=== PATIENT | female | born 1945 | race Caucasian/White ===

== ENCOUNTER 2016-08-04 07:59 | Emergency (ER) | payer OTHER ==
--- NOTE | 2016-08-04 09:30 | RAD ---
HISTORY: Tender trochanter, status post fall COMPARISONS: None VIEWS: 3, Frontal view of the pelvis with frontal and frog-leg views of the left hip FINDINGS: BONE DENSITY: Normal. BONES: There is a mildly angulated slightly impacted fracture of the subcapital femoral neck on the left. JOINTS: There is no arthropathy. ALIGNMENT: There is no dislocation. SOFT TISSUES: Unremarkable. OTHER FINDINGS: None. IMPRESSION: MILDLY ANGULATED LEFT FEMORAL NECK FRACTURE
[2016-08-04] MEDS ORDERED: HYDROcodone/ACETAMIN 5-325 MG* 1 TAB PO ONE (09:38)
[2016-08-04 10:20] VITALS: BP 151/85
--- NOTE | 2016-08-04 10:48 | UC ---
Austin Dean Anna, scribed for Yael Looney DO on 08/04/16 at 0939 . Hip/Pelvis Pain - HPI Summary HPI Summary: Patient is a 70 y/o female coming to [facility] presenting with the sudden onset of constant left hip pain that began at 2230 last night. Per triage notes, the severity of the pain is described as 5/10. At rest, the pain is lower, of severity 3/10. The patient was walking when she tripped on shopping bags and fell from a standing height, landing on her left hip. The pain is exacerbated by walking and movement. When walking, she experiences dizziness and nausea. She denies abdominal pain, fever, cough, or other symptoms. Patient medications were reviewed this visit. 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 Negative: Swelling, Redness, Bruising, Fever, Abdominal Pain - Allergies/Home Medications Allergies/Adverse Reactions: Allergies Allergy/AdvReac Type Severity Reaction Status Date / Time No Known Allergies Allergy Verified 09/03/12 17:53 PMH/Surg Hx/FS Hx/Imm Hx Previously Healthy: Yes Endocrine History Of: Denies: Diabetes, Thyroid Disease Cardiovascular History Of: Denies: Cardiac Disorders, Hypertension Respiratory History Of: Denies: COPD, Asthma GI/ History Of: Denies: Ulcer - Surgical History Surgical History: None - Family History Known Family History: Positive: Hypertension - In parents >age 90 Negative: Diabetes Family History: Denies family history of osteoperosis - Social History Occupation: Employed Full-time Lives: With Family Alcohol Use: Daily Alcohol Amount: wine with dinner Substance Use Type: None Smoking Status (MU): Never Smoked Tobacco Review of Systems Constitutional: Negative Skin: Negative Eyes: Negative ENT: Negative Respiratory: Negative Cardiovascular: Negative Gastrointestinal: Other - nausea with attempting to bear wt Genitourinary: Negative Motor: Negative Neurovascular: Negative Musculoskeletal: Arthralgia - Pain in left hip, over trochanter, radiating down to knee Neurological: Other - dizziness with attempting to bear wt Psychological: Negative All Other Systems Reviewed And Are Negative: Yes Physical Exam Triage Information Reviewed: Yes Appearance: Well-Appearing, No Pain Distress, Well-Nourished Vital Signs: Initial Vital Signs Temp 97.8 F 08/04/16 08:09 Pulse 74 08/04/16 08:09 Resp 18 08/04/16 08:09 BP 154/89 08/04/16 08:09 Pulse Ox 100 08/04/16 08:09 Vital Signs Reviewed: Yes Eyes: Positive: Conjunctiva Clear. Negative: Discharge ENT: Positive: Hearing grossly normal. Negative: Muffled/hoarse voice Neck exam: Normal Neck: Positive: Supple Respiratory: Positive: Lungs clear, Normal breath sounds, No respiratory distress, No accessory muscle use Cardiovascular: Positive: RRR, No Murmur Musculoskeletal Exam: Other - Ankle, knee, right and left hip, and sacrum were evaluated. Tenderness to palpation was elicited only over trochanter. Musculoskeletal: Positive: Other: - no swelling redness, bruising Neurological: Positive: Alert, Muscle Tone Normal Psychological Exam: Normal Psychological: Positive: Age Appropriate Behavior Skin Exam: Normal Diagnostics - Radiology Hip/Pelvis XR Xray Interpretation: Positive (See Comments) Radiology Interpretation Completed By: Radiologist - IMPRESSION: MILDLY ANGULATED LEFT FEMORAL NECK FRACTURE Hip Injury Course/Dx - Course Course Of Treatment: Declines analgesics at this time. - Differential Dx/Diagnosis Differential Diagnosis/HQI/PQRI: Bursitis, Contusion, Fracture, Sprain, Strain Provider Diagnoses: Mildly angulated left femoral neck fracture - Physician Notification/Consults Discussed Patient Care With: Dr. Peterson (orthopedics) at 0940. He recommends that the patient go to the emergency room to be evaluated by an orthopedic surgeon. Dr. Anthony (ED provider) at 1005. Agrees to accept patient at [facility]. Discharge - Discharge Plan Condition: Stable Disposition: TRANS HIGHER LVL OF CARE FAC Discharge Disposition Comment: [facility] Referrals: Kimberly Hubbard MD [Primary Care Provider] - The documentation as recorded by the Austin morris Anna accurately reflects the service I personally performed and the decisions made by , Yael Looney DO.
== END 2016-08-04 10:22 | disposition short-term general hospital (02) ==
LOC: UCEAST 07:59
DX: S72.002A Fracture of unspecified part of neck of left femur, initial encounter for closed fracture (principal); W01.0XXA Fall on same level from slipping, tripping and stumbling without subsequent striking against object, initial encounter; Y93.9 Activity, unspecified; Y92.9 Unspecified place or not applicable; R42 Dizziness and giddiness
CPT/HCPCS: 99213; G0463

== ENCOUNTER 2016-08-04 10:44 | Inpatient (IN) | payer OTHER ==
[2016-08-04] MEDS ORDERED: NS 0.9% 1000 ML* 1,000 ML IV ONE (10:52)
--- NOTE | 2016-08-04 11:28 | RAD ---
HISTORY: Left hip fracture, fall COMPARISONS: Left hip dated July 27, 2016 VIEWS: 5, Frontal and lateral views of the left femur FINDINGS: BONE DENSITY: Normal. BONES: Again noted is an angulated slightly impacted fracture of the left femoral neck JOINTS: There is no arthropathy. ALIGNMENT: There is no dislocation. SOFT TISSUES: Unremarkable. OTHER FINDINGS: None. IMPRESSION: AGAIN NOTED IS AN ANGULATED SLIGHTLY IMPACTED FRACTURE OF THE LEFT FEMORAL NECK
--- NOTE | 2016-08-04 11:29 | RAD ---
HISTORY: Hip fracture COMPARISONS: None VIEWS: Single frontal view of the chest FINDINGS: CARDIOMEDIASTINAL SILHOUETTE: The cardiomediastinal silhouette is normal. CHRISTINA: The christina are normal. PLEURA: The costophrenic angles are sharp. No pleural abnormalities are noted. LUNG PARENCHYMA: The lungs are clear. ABDOMEN: The upper abdomen is clear. There is no subphrenic gas. BONES AND SOFT TISSUES: No bone or soft tissue abnormalities are noted. OTHER: None. IMPRESSION: NO ACTIVE CARDIOPULMONARY DISEASE.
[2016-08-04 11:42] LABS: Hematocrit 41 % (35-47); Hemoglobin 13.8 g/dl (12.0-16.0); Mean Corpuscular HGB Conc 34 g/dl (31-36); Mean Corpuscular Hemoglobin 30 pg (27-31); Mean Corpuscular Volume 89 fL (80-97); Mean Platelet Volume 8 um3 (7.4-10.4); Red Blood Count 4.62 10^6/ul (4.0-5.4); Red Cell Distribution Width 13 % (10.5-15); Urine Bacteria 1+ (Absent); Urine Bilirubin Negative (Negative); Urine Glucose Negative (Negative); Urine Nitrite Negative (Negative); White Blood Count 8.4 10^3/ul (3.5-10.8)
[2016-08-04 11:57] LABS: Albumin 4.2 g/dL (3.2-5.2); C Reactive Protein 4.86 mg/L (< 5.00); Calcium 9.2 mg/dL (8.6-10.3); EGFR African American 127.9 (>60); EGFR Non-African American 99.4 (>60); Globulin 2.6 g/dL (2-4); Potassium 3.6 mmol/L (3.5-5.0); Total Bilirubin 1.7 mg/dL (0.2-1.0); Total Protein 6.8 g/dL (6.4-8.9)
--- NOTE | 2016-08-04 12:14 | RAD ---
HISTORY: Left hip fracture COMPARISONS: Plain film dated August 04, 2016 TECHNIQUE: Multiple contiguous axial CT images are obtained of the pelvis, with coronal and sagittal multiplanar reconstructions, without intravenous contrast administration. FINDINGS: BONE DENSITY: Normal. BONES: Again noted is an angulated and slightly impacted fracture of the left subcapital femoral neck JOINTS: There is no arthropathy. MUSCULATURE: Unremarkable ALIGNMENT: There is no dislocation. SOFT TISSUES: Unremarkable. OTHER FINDINGS: None. IMPRESSION: AGAIN NOTED IS AN ANGULATED AND SLIGHTLY IMPACTED SUBCAPITAL FEMORAL NECK FRACTURE ON THE LEFT
[2016-08-04] MEDS ORDERED: Dexamethasone IV* 4 MG/ML 1 ML (4 MG) ONE (14:52)
[2016-08-04] MEDS ORDERED: Ondansetron INJ* 2 MG/ML VIAL ONE (14:52)
[2016-08-04] MEDS ORDERED: Ketorolac INJ* 30 MG/ML 1 ML VIAL ONE (14:52)
[2016-08-04] MEDS ORDERED: Lidocaine 2% PF * 5 ML VIAL ONE (14:52)
[2016-08-04] MEDS ORDERED: Midazolam* 1 MG/ML 5 ML VIAL (5 MG) ONE (14:53)
[2016-08-04] MEDS ORDERED: KETAMINE HCL* 50 MG/ML 10 ML VIAL ONE (14:53)
[2016-08-04] MEDS ORDERED: fentaNYL* 50 MCG/ML 2 ML VIAL (100 MCG VIAL) ONE ×3 (14:53→18:02)
[2016-08-04] MEDS ORDERED: ceFAZolin 2 GM PREMIX(*) 2 GM/50 ML BAG IVPB ONE (14:56)
[2016-08-04] MEDS ORDERED: oxyCODONE TAB* 5 MG TAB PO PRN (15:17)
[2016-08-04] MEDS ORDERED: Acetaminophen TAB* 325 MG PO PRN (15:17)
[2016-08-04] MEDS ORDERED: Ondansetron INJ* 2 MG/ML VIAL IV PRN ×2 (15:17→17:45)
[2016-08-04] MEDS ORDERED: Morphine INJ* 2 MG/ML 1 ML SYRINGE IV PRN (15:17)
[2016-08-04] MEDS ORDERED: diPHENhydraMINE IV* 50 MG/ML 1 ml VIAL (BENADRYL) IV PRN (15:17)
[2016-08-04] MEDS ORDERED: Temazepam CAP* 15 MG PO PRN (15:17)
[2016-08-04] MEDS ORDERED: Enoxaparin(*) 40 MG/0.4 ML SYR SUBCUT SCH (16:00)
[2016-08-04] MEDS ORDERED: EPHEDrine (Pressors)* 50 MG/ML VIAL ONE (16:20)
[2016-08-04] MEDS ORDERED: Bupivacaine 0.5% W/EPI SDV* 30 ML VIAL ONE (17:18)
[2016-08-04] MEDS ORDERED: Labetalol IV* 5 MG/ML 20 ML VIAL ONE (17:22)
[2016-08-04] MEDS ORDERED: HYDROmorphone* 1 MG/ML 1 ML SYR ONE (18:02)
[2016-08-04] MEDS: fentaNYL* 50 MCG/ML 2 ML VIAL (100 MCG VIAL) IV PRN ×4 (18:04→18:36)
[2016-08-04] MEDS: HYDROmorphone* 1 MG/ML 1 ML SYR IV PRN ×2 (18:05→18:14)
--- NOTE | 2016-08-04 18:40 | ED ---
Leia Dean Auryana, scribed for Dominick Anthony MD on 08/04/16 at 1100 . Lower Extremity - HPI Summary HPI Summary: 70 year old female presents to ED with left hip pain s/p fall last night. She is unable to ambulate. She was seen at and sent to the ED for further evaluation of left hip FX. Her last meal was last night. She denies any abdominal pain, back pain, and LE edema. She denies any past medical history and is not on any medications. SHx is significant for alcohol daily - wine with dingier but denies any tobacco use. - History of Current Complaint Chief Complaint: EDExtremityLower Stated Complaint: HIP FRACTURE Time Seen by Provider: 08/04/16 10:50 Hx Obtained From: Patient Hx Last Menstrual Period: n/a Mechanism Of Injury: Fall From A Standing Position Onset of Pain: Immediate, Prior to Arrival Onset/Duration: Still Present Severity Initially: Mild Severity Currently: Mild Pain Intensity: 4 Pain Scale Used: 0-10 Numeric Timing: Constant Location: Is Discrete @ - left hip Able to Bear Weight: No - Allergies/Home Medications Allergies/Adverse Reactions: Allergies Allergy/AdvReac Type Severity Reaction Status Date / Time No Known Allergies Allergy Verified 09/03/12 17:53 PMH/Surg Hx/FS Hx/Imm Hx Endocrine/Hematology History: Denies: Hx Diabetes, Hx Thyroid Disease Cardiovascular History: Denies: Hx Hypertension Respiratory History: Denies: Hx Asthma, Hx Chronic Obstructive Pulmonary Disease (COPD) GI History: Denies: Hx Ulcer Infectious Disease History: No Infectious Disease History: Denies: Hx Clostridium Difficile, Hx Hepatitis, Hx Human Immunodeficiency Virus (HIV), Hx of Known/Suspected MRSA, Hx Shingles, Hx Tuberculosis, Hx Known/ Suspected VRE, Hx Known/Suspected VRSA, History Other Infectious Disease, Traveled Outside the [place] in Last 30 Days - Family History Known Family History: Positive: Cardiac Disease - [place], Blood Disorder - leukemia , Other - colon cancer - Social History Occupation: Employed Full-time Lives: With Family - husbands Alcohol Use: Daily Alcohol Amount: wine with dinner Substance Use Type: Reports: None Smoking Status (MU): Never Smoked Tobacco Review of Systems Constitutional: Negative Eyes: Negative ENT: Negative Cardiovascular: Negative Respiratory: Negative Gastrointestinal: Negative Negative: Abdominal Pain Genitourinary: Negative Positive: Arthralgia - left hip pain , Other - no back pain Skin: Negative Neurological: Negative Psychological: Normal All Other Systems Reviewed And Are Negative: Yes Physical Exam - Summary Physical Exam Summary: VITAL SIGNS: Reviewed. GENERAL: Patient is a well-developed and nourished female who is lying comfortable in the stretcher. Patient is not in any acute respiratory distress. HEAD AND FACE: No signs of trauma. No ecchymosis, hematomas or skull depressions. No sinus tenderness. EYES: PERRLA, EOMI x 2, No injected conjunctiva, no nystagmus. EARS: Hearing grossly intact. Ear canals and tympanic membranes are within normal limits. MOUTH: Oropharynx within normal limits. NECK: Supple, trachea is midline, no adenopathy, no JVD, no carotid bruit, no c- spine tenderness, neck with full ROM. CHEST: Symmetric, no tenderness at palpation LUNGS: Clear to auscultation bilaterally. No wheezing or crackles. CVS: Regular rate and rhythm, S1 and S2 present, no murmurs or gallops appreciated. ABDOMEN: Soft, non-tender. No signs of distention. No rebound no guarding, and no masses palpated. Bowel sounds are normal. EXTREMITIES: decreased ROM with no ecchymosis, hematoma, or any deformity. FROM in all other major joints, no edema, no cyanosis or clubbing. NEURO: Alert and oriented x 3. No acute neurological deficits. Speech is normal and follows commands. SKIN: Dry and warm Triage Information Reviewed: Yes Vital Signs On Initial Exam: Initial Vitals Temp Pulse Resp BP Pulse Ox 99.5 F 82 16 152/86 98 08/04/16 10:52 08/04/16 10:52 08/04/16 10:52 08/04/16 10:52 08/04/16 10:52 Vital Signs Reviewed: Yes - Marylin Coma Scale Coma Scale Total: 15 Diagnostics - Vital Signs Vital Signs Temp Pulse Resp BP Pulse Ox 08/04/16 10:54 84 95 08/04/16 10:52 99.5 F 82 16 152/86 98 - Laboratory Lab Results: Lab Results 08/04/16 08/04/16 08/04/16 Range/Units 11:30 11:30 11:30 WBC 8.4 (3.5-10.8) 10^3/ul RBC 4.62 (4.0-5.4) 10^6/ul Hgb 13.8 (12.0-16.0) g/dl Hct 41 (35-47) % MCV 89 (80-97) fL MCH 30 (27-31) pg MCHC 34 (31-36) g/dl RDW 13 (10.5-15) % Plt Count 251 (150-450) 10^3/ul MPV 8 (7.4-10.4) um3 Neut % (Auto) 81.5 (38-83) % Lymph % (Auto) 11.3 L (25-47) % Glascock % (Auto) 5.8 (1-9) % Eos % (Auto) 1.0 (0-6) % Baso % (Auto) 0.4 (0-2) % Absolute Neuts (auto) 6.9 (1.5-7.7) 10^3/ul Absolute Lymphs (auto) 0.9 L (1.0-4.8) 10^3/ul Absolute Monos (auto) 0.5 (0-0.8) 10^3/ul Absolute Eos (auto) 0.1 (0-0.6) 10^3/ul Absolute Basos (auto) 0 (0-0.2) 10^3/ul Absolute Nucleated RBC 0.01 10^3/ul Nucleated RBC % 0.1 Sodium 135 (133-145) mmol/L Potassium 3.6 (3.5-5.0) mmol/L Chloride 104 (101-111) mmol/L Carbon Dioxide 26 (22-32) mmol/L Anion Gap 5 (2-11) mmol/L BUN 12 (6-24) mg/dL Creatinine 0.60 (0.51-0.95) mg/dL Est GFR ( Amer) 127.9 (>60) Est GFR (Non-Af Amer) 99.4 (>60) BUN/Creatinine Ratio 20.0 (8-20) Glucose 97 (70-100) mg/dL Lactic Acid (0.5-2.0) mmol/L Calcium 9.2 (8.6-10.3) mg/dL Total Bilirubin 1.70 H (0.2-1.0) mg/dL AST 23 (13-39) U/L ALT 26 (7-52) U/L Alkaline Phosphatase 81 (34-104) U/L C-Reactive Protein 4.86 (< 5.00) mg/L Total Protein 6.8 (6.4-8.9) g/dL Albumin 4.2 (3.2-5.2) g/dL Globulin 2.6 (2-4) g/dL Albumin/Globulin Ratio 1.6 (1-3) Urine Color Straw Urine Appearance Clear Urine pH 8.0 (5-9) Ur Specific Jay 1.005 L (1.010-1.030) Urine Protein Negative (Negative) Urine Ketones Negative (Negative) Urine Blood Negative (Negative) Urine Nitrate Negative (Negative) Urine Bilirubin Negative (Negative) Urine Urobilinogen Negative (Negative) Ur Leukocyte Esterase Trace H (Negative) Urine WBC (Auto) Trace(0-5/hpf) (Absent) Urine RBC (Auto) Trace(0-2/hpf) (Absent) Ur Squamous Epith Cells Present H (Absent) Urine Bacteria 1+ H (Absent) Urine Glucose Negative (Negative) Blood Type Antibody Screen 08/04/16 08/04/16 Range/Units 11:30 11:30 WBC (3.5-10.8) 10^3/ul RBC (4.0-5.4) 10^6/ul Hgb (12.0-16.0) g/dl Hct (35-47) % MCV (80-97) fL MCH (27-31) pg MCHC (31-36) g/dl RDW (10.5-15) % Plt Count (150-450) 10^3/ul MPV (7.4-10.4) um3 Neut % (Auto) (38-83) % Lymph % (Auto) (25-47) % Glascock % (Auto) (1-9) % Eos % (Auto) (0-6) % Baso % (Auto) (0-2) % Absolute Neuts (auto) (1.5-7.7) 10^3/ul Absolute Lymphs (auto) (1.0-4.8) 10^3/ul Absolute Monos (auto) (0-0.8) 10^3/ul Absolute Eos (auto) (0-0.6) 10^3/ul Absolute Basos (auto) (0-0.2) 10^3/ul Absolute Nucleated RBC 10^3/ul Nucleated RBC % Sodium (133-145) mmol/L Potassium (3.5-5.0) mmol/L Chloride (101-111) mmol/L Carbon Dioxide (22-32) mmol/L Anion Gap (2-11) mmol/L BUN (6-24) mg/dL Creatinine (0.51-0.95) mg/dL Est GFR ( Amer) (>60) Est GFR (Non-Af Amer) (>60) BUN/Creatinine Ratio (8-20) Glucose (70-100) mg/dL Lactic Acid 0.7 (0.5-2.0) mmol/L Calcium (8.6-10.3) mg/dL Total Bilirubin (0.2-1.0) mg/dL AST (13-39) U/L ALT (7-52) U/L Alkaline Phosphatase (34-104) U/L C-Reactive Protein (< 5.00) mg/L Total Protein (6.4-8.9) g/dL Albumin (3.2-5.2) g/dL Globulin (2-4) g/dL Albumin/Globulin Ratio (1-3) Urine Color Urine Appearance Urine pH (5-9) Ur Specific Jay (1.010-1.030) Urine Protein (Negative) Urine Ketones (Negative) Urine Blood (Negative) Urine Nitrate (Negative) Urine Bilirubin (Negative) Urine Urobilinogen (Negative) Ur Leukocyte Esterase (Negative) Urine WBC (Auto) (Absent) Urine RBC (Auto) (Absent) Ur Squamous Epith Cells (Absent) Urine Bacteria (Absent) Urine Glucose (Negative) Blood Type A Positive Antibody Screen Negative Result Diagrams: 08/04/16 11:30 08/04/16 11:30 Lab Statement: Any lab studies that have been ordered have been reviewed, and results considered in the medical decision making process. - Radiology CXR Xray Interpretation: No Acute Changes Radiology Interpretation Completed By: Radiologist FEMUR LEFT Xray Interpretation: Positive (See Comments) - IMPRESSION: AGAIN NOTED IS AN ANGULATED SLIGHTLY IMPACTED FRACTURE OF THE LEFT FEMORAL NECK Radiology Interpretation Completed By: Radiologist - CT PELVIS CT Interpretation: Positive (See Comments) - IMPRESSION: AGAIN NOTED IS AN ANGULATED AND SLIGHTLY IMPACTED SUBCAPITAL FEMORAL NECK FRACTURE ON THE LEFT CT Interpretation Completed By: Radiologist Lower Extremity Course/Dx - Course Course Of Treatment: 70 year old female presents to ED with left hip pain s/p fall last night. She is unable to ambulate. She was seen at and sent to the ED for further evaluation of left hip FX. Her last meal was last night. She denies any abdominal pain, back pain, and LE edema. She denies any past medical history and is not on any medications. SHx is significant for alcohol daily - wine with dingier but denies any tobacco use. Assessment/Plan: Blood work WNL . CT PELVIS - IMPRESSION: AGAIN NOTED IS AN ANGULATED AND SLIGHTLY IMPACTED SUBCAPITAL FEMORAL NECK FRACTURE ON THE LEFT. LEFT FEMUR XR- IMPRESSION: AGAIN NOTED IS AN ANGULATED SLIGHTLY IMPACTED FRACTURE OF THE LEFT FEMORAL NECK. CXR NAD. In ED course, patient given IV fluids, and did not require any pain medication. I discussed case with Dr. Peterson who agrees to admit patient to his service. He requested medical clearance. I request medical clearance from Dr. Page-will do as soon as possible. Patient is A&O x3 and hemodynamically stable. DX: Left hip fracture. - Diagnoses Differential Diagnosis/HQI/PQRI: Positive: Fracture (Closed), Sprain, Strain Provider Diagnoses: Hip fracture, left - Physician Notifications Discussed Care of Patient With: Dr. Peterson Time Discussed With Above Provider: 10:00 - spoken to TALENT DEVELOPMENT SPECIALIST - agrees to admit patient Discharge - Discharge Plan Condition: Stable Disposition: ADMITTED TO [facility] The documentation as recorded by the Leia morris Auryana accurately reflects the service I personally performed and the decisions made by me, Dominick Anthony MD.
--- NOTE | 2016-08-04 19:22 | CONS ---
CONSULTATION REPORT: DATE OF CONSULT: 08/04/16 ATTENDING PHYSICIAN WHILE IN THE HOSPITAL: Abril Page DO (report being dictated by Shanelle Hassan NP). REASON FOR MEDICAL CONSULTATION: Preoperative medical evaluation. REQUESTING PHYSICIAN FOR CONSULT: Leonid Peterson MD CHIEF COMPLAINT: 1. Fall. 2. Left hip pain. HISTORY OF PRESENT ILLNESS: Ms. Soto is a 70-year-old female patient who really carries no medical history at all. She states that yesterday last evening, she was walking in her house and she tripped over a bag, she fell and landed on her left side. She had pain there. She could not stand on the leg. She unfortunately could not bear weight, but her care her upstairs and she took a couple of aspirin to see if she would be feeling better in the morning. The patient's needed to assist her up the stairs. She went to bed, this morning she woke up, the pain was still persisting in the left hip and she went to Urgent Care and they were concerned and sent her to the hospital because it appeared that she had a left hip fracture. She denied having any chest pain prior to or after the event. She denied having any shortness of breath. She said that she can walk up a flight of stairs typically and does not get chest pain or shortness of breath. She does exercise routinely. She goes for walk on a daily basis and she does this without any difficulty. She states that she is on no medications with exception of baby aspirin daily, but because of the hip fracture, hospitalist service was asked to come and evaluate for perioperative risk stratification. PAST MEDICAL HISTORY: Negative. PAST SURGICAL HISTORY: Denied. HOME MEDICATIONS: Include aspirin 81 mg daily. ALLERGIES TO MEDICATIONS: None. FAMILY HISTORY: Reviewed and noncontributory. SOCIAL HISTORY: She does not smoke. She occasionally drinks wine. Surrogate decision maker is her . She is . REVIEW OF SYSTEMS: There is no documented fever. She denied having any significant weight change. There was no double vision. There is no ear discharge. There is no rhinorrhea. There is no sore throat. No thyroid enlargement. Denied having any chest pain. There is no orthopnea. There is no nocturnal dyspnea. There is no abdominal pain. There is no nausea, no vomiting, no dysuria, no frequency, no seizure. There is no loss of consciousness, no pruritus and no skin ulcerations. Review of 14 systems completed, all others negative. PHYSICAL EXAM: Reveals vital signs, blood pressure 152/86, pulse 82, respirations 16, O2 sat 98%, temperature 99.5. Generally, at this time, Ms. Soto is a 70-year- old female patient. She appears well nourished and well developed. She does not appear to be in any acute distress. HEENT: Head is atraumatic, normocephalic. Eyes: EOMs are intact. Sclerae were anicteric and not pale. Neck: Supple. Throat: Oral mucosa appears moist, no oropharyngeal erythema. Heart: Sounds S1 and S2. Regular rate and rhythm. No murmurs, rubs , or gallops. Lungs: Clear to auscultation bilaterally. No wheezes, rales, or rhonchi. Abdomen: Soft, flat, nontender. Bowel sounds are present. Extremities: Pulses 2+ throughout. Left lower extremity: She cannot move because this is the affected extremity but distal CSM checks are intact. Neurological: She is awake, alert and oriented x3. Tongue midline. Beauty Operator Apprentice are equal. No gross focal deficits. Skin: Intact. DIAGNOSTIC STUDIES/LAB DATA: The labs today revealed a WBC of 8.4, RBC of 4.62 , hemoglobin of 13.8, hematocrit of 41, and platelet count of 251. The sodium was 135, potassium is 3.6, chloride 104, bicarb 26, BUN 12, creatinine of 0.60, glucose 97, lactic 0.7. Calcium 9.2, mag 1.7, AST 23, ALT 26, alk phos 81, CRP of 4.86. Urine was obtained. It showed a low specific gravity, trace leukocyte esterase, 1+ bacteria. She did have a chest x-ray obtained today, which revealed no active cardiopulmonary disease. There was a pelvis CT, which revealed again noted is an angulated and slightly impacted subcapital femoral neck fracture on the left. She did have a femur x-ray as well, which revealed again noted is an angulated soft, impact fracture of the left femoral neck. There was an EKG obtained today, which showed a normal sinus rhythm, rate of 79. No ST elevation or T-wave inversions. Old medical records reviewed. ASSESSMENT AND PLAN: Ms. Soto is a 70-year-old female patient coming in to the ER today with complaint of fall now and found to have a left hip fracture. Hospitalist service was asked to evaluate for risk stratification. Recommendations at this point are: 1. Status post left hip fracture. At this point, I will defer the management to Dr. Peterson and his team but she is low risk. EKG is stable and chest x-ray is stable. She is medically optimized for the OR. 2. Borderline hypertension. She will follow this in the postoperative setting , if we need to we can always start antihypertensive. We will monitor. 3. Hyperlipidemia. Again, she is diet controlled. Follow with her primary. She states that she is being watched closely with Dr. Snow". 4. DVT prophylaxis, I will defer to the primary team. 5. Code status. She is full code. 6. Fluids, electrolytes, nutrition. I would recommend a regular diet postop. TIME SPENT: Time spent on the consult was 60 minutes; greater than half the time was spent [id number] with the patient obtaining my history and physical, other half the time spent going over the plan of care with the patient and implementing plan of care. I did discuss the plan of care with my attending, Dr. Page, she is in agreement. SHANELLE HASSAN NP CC: Leonid Peterson MD; Dr. Hubbard* [id number]/[facility] #: [id number] MTDD
--- NOTE | 2016-08-04 21:58 | HP ---
HISTORY AND PHYSICAL: DATE OF ADMISSION: 08/04/16 CHIEF COMPLAINT: Left hip pain. HISTORY OF PRESENT ILLNESS: Sara is a healthy 70-year-old female who had a mechanical fall at home last night and had the onset of left hip pain. It was olijgueg-sb-wwyqbs. She was able to get up and with the help of her , get to bed. When she got up this morning, she was continued to have left hip pain. She was able to ambulate only with the assistance of her . She was able to get herself to the [facility], where x-rays were done and she was diagnosed with a left femoral neck fracture. They called me for consultation from the [facility] and I asked them to send her over to the hospital and to make her nonweightbearing. She was sent over via ambulance to the emergency room, where she was seen by the hospitalist who saw her for preoperative medical optimization. In the ER here, she had a CT scan and some additional x-rays. Her left hip pain has remained unchanged. She denies any numbness or tingling in the lower extremities. She denies pain in anywhere else in the body. PAST MEDICAL HISTORY: She denies any significant past medical history. PAST SURGICAL HISTORY: Negative. MEDICATIONS: Aspirin daily. ALLERGIES: No known drug allergies. FAMILY HISTORY: Negative for any history of bleeding or anesthesia disorders. SOCIAL HISTORY: She does not smoke. She does not use any recreational drugs. She does not have excessive alcohol intake. 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 REVIEW OF SYSTEMS: Significant for left hip pain, otherwise negative. PHYSICAL EXAMINATION GENERAL: Awake, alert, and oriented. Calm. Mood and affect are normal. LUNGS: Clear. CARDIAC: Regular. Extremities: Left lower extremity, she has pain with the knee to log roll of the left lower extremity. She has intact neurological function distally. The knee is nontender and non-swollen as was the rest of the lower extremity. She has a stable pelvis. Strength and instability examination were deferred due to the recent injury. MUSCULOSKELETAL: The remainder of the secondary survey was performed. It is negative for tenderness or pain with motion in any of the other extremities. SKIN: Intact. DIAGNOSTIC STUDIES/LAB DATA: Left hip x-rays, left femur x-rays, and CT of the left hip were performed. She has a valgus impacted subcapital femoral neck fracture. There is some external rotation at the fracture, but the femoral head is still fully apposed to the femoral neck. IMPRESSION: Left valgus impacted subcapital femoral neck fracture. PLAN/RECOMMENDATIONS: I had a discussion with Ms. Charles Peck about the treatment of the injury. There is some translation of the femoral neck with respect to the femoral head, but there is still complete apposition. I did show the x-rays to my partner who is a total hip specialist and together we conferred about the best treatment for Ms. Charles Peck. We both agree that the best plan here would be for percutaneous screw fixation of the left femoral neck fracture. I think that given her fracture pattern, she does have an increased risk of failure of fixation. I discussed that with her. If that were to occur then she would need a total hip replacement that I think that the fracture at this point does not warrant acute total hip arthroplasty and so we will plan for percutaneous screw fixation of the left femoral neck fracture. [id number]/[facility] #: [id number] MAHENDRA
[2016-08-05] MEDS: ceFAZolin VIAL(*) 1 GM in NS 0.9% 50 ML* 50 ML IVPB SCH ×3 (00:44→16:53)
[2016-08-05] MEDS: Docusate CAP* 100 MG PO SCH ×3 (01:08→19:32)
[2016-08-05] MEDS: oxyCODONE/Acetamin 5/325 MG* TAB PO PRN ×5 (04:03→20:59)
--- NOTE | 2016-08-05 05:50 | OP ---
OPERATIVE REPORT: DATE OF OPERATION: 08/04/16 - inpatient, room #350-02 DATE OF : 49 SURGEON: Leonid Peterson MD SHIP'S CAPTAIN: ELIAZAR West ANESTHESIOLOGIST: Dr. Medina. ANESTHESIA: General. PRE-OP DIAGNOSIS: Left valgus impacted subcapital femoral neck fracture. POST-OP DIAGNOSIS: Left valgus impacted subcapital femoral neck fracture. OPERATIVE PROCEDURE: Percutaneous screw fixation of left valgus impacted subcapital femoral neck fracture. INDICATIONS: Sara is a very healthy 70-year-old woman, who had a fall last night at home. She was able to walk a little bit on the hip with the help of her . She actually walked into the [facility] this morning and was sent over to the emergency room after the diagnosis was made. She did not have much pain in that hip prior to the fracture. I had reviewed her imaging with my total joint partner and together we decided that given the alignment of the fracture, percutaneous screw fixation would be acceptable treatment plan with the understanding that she is probably at somewhat higher risk for displacement and the need for subsequent total hip arthroplasty. I discussed all this with Ms. Charles Peck, she elected to proceed with the surgery. ESTIMATED BLOOD LOSS: 50 mL. COMPLICATIONS: None. FINDINGS: As expected. DESCRIPTION OF PROCEDURE: Sara was seen in the preoperative holding area. The correct site, side, and procedure were identified. We came back to the operating room, where she was positioned on the fracture table. After general anesthesia was induced, she was placed in the leg holders with the legs in the scissored position. We brought in C-arm to check that we got good imaging. Once we had confirmed the alignment and the ability to obtain adequate imaging, we went ahead and scrubbed the leg with chlorhexidine and then prepped it with ChloraPrep and draped the leg with the shower curtain. We then had a formal time-out. I began by marking out the trajectory of my pins by placing the pin on top of the skin. The pin sites were starting just at or above the lesser troch. I then made a 4-cm longitudinal incision. Dissection was carried down sharply and the tensor fascia silvana was split. I used a Crawford elevator to free up the soft tissue over the lateral femur. I brought in my first pin and placed it in the center of the femur. The pin was then advanced up just off the inferior cortex of the femoral neck and into the inferior aspect of the femoral head. Once the guidewire was in the appropriate position, I measured the screw and placed a Synthes 7.3 mm cannulated 85-mm screw. This actually seemed like it was a bit long to me, so I backed it out and switched to an 80-mm screw which had good purchase. I then placed my second guidewire just off the anterior cortex of the femoral neck. The screw was measured and placed in similar fashion. I then placed my third posterior guidewire. I angled this just a little bit more posterior, off parallel from my other 2 wires. It was still parallel on the AP imaging, but angled it just a little bit more posterior on the lateral imaging. The screw was measured and in place. I was not happy with the bite on the lateral femoral cortex and so I went ahead and backed out the screw and put a washer on and then re- introduced the screw. It held. At this point, I had an excellent bite. I was very satisfied with the length of the screw. I went ahead and tightened all the screws and removed all the guidewires. The final AP and lateral imaging was obtained. The wound was copiously irrigated. The surgical area was infiltrated with 0.5% Marcaine with epinephrine. The wound was closed with 2-0 Polysorb and then harley. The wound was dressed with Xeroform, 4x4's, and then a foam tape. She was then awoken back up, taken off the fracture table, and taken to the recovery room in stable condition. [id number]/[facility] #: [id number] MAHENDRA
[2016-08-05 06:57] LABS: Hematocrit 35 % (35-47); Hemoglobin 12.1 g/dl (12.0-16.0)
[2016-08-05 07:16] LABS: BUN/Creatinine Ratio 14.3 (8-20); Calcium 8.6 mg/dL (8.6-10.3); EGFR African American 138.5 (>60); EGFR Non-African American 107.7 (>60); Potassium 4.2 mmol/L (3.5-5.0)
[2016-08-05] MEDS: Aspirin EC Low Dose* 81 MG TAB.EC PO SCH (08:28)
[2016-08-05] MEDS: Enoxaparin(*) 40 MG/0.4 ML SYR SUBCUT SCH (08:29)
--- NOTE | 2016-08-05 09:24 | PN ---
Progress Note - Progress Note Note: Doing well this morning. No issues. Pain controlled Dressing c/d/i, +TA/GS A/P: POD#1 s/p percutaneous screw fixation left femoral neck fracture OOB, touch down weight bearing, lovenox for DVT ppx and home on aspirin, PT consulted, disposition to home or rehab facility depending on how she does with PT
[2016-08-06] MEDS: oxyCODONE/Acetamin 5/325 MG* TAB PO PRN ×5 (01:42→20:41)
[2016-08-06] MEDS: ceFAZolin VIAL(*) 1 GM in NS 0.9% 50 ML* 50 ML IVPB SCH ×2 (01:43→08:47)
--- NOTE | 2016-08-06 07:35 | RAD ---
INDICATION: Left hip internal fixation, fracture, fall COMPARISONS: August 04, 2016 TECHNIQUE: Fluoroscopy was provided for a surgical procedure. Total fluoroscopy time is: 92.5 seconds FINDINGS: Spot images demonstrate internal fixation of the left femoral neck IMPRESSION: FLUOROSCOPY WAS PROVIDED FOR A SURGICAL PROCEDURE CPT II Codes: 6045F
--- NOTE | 2016-08-06 09:17 | PN ---
Progress Note - Progress Note SOAP: Subjective: []Patient seen OOB in chair, doing very well. present. Needs to practice more with steps before she can go home. Pain well managed with Percocet. Denies, SOB, dizziness or chest pain. Hopes to be able to go home Objective: [] Vital Signs Temp 99.1 F 08/06/16 07:25 Pulse 79 08/06/16 07:20 Resp 14 08/06/16 07:26 BP 145/78 08/06/16 07:20 Pulse Ox 94 08/06/16 07:26 Intake & Output 08/05/16 08/06/16 08/06/16 18:59 06:59 18:59 Intake Total 1320 100 Output Total 650 1300 Balance 670 -1200 Intake: IV Fluids 400 ABX - CEFAZOLIN 55 LR 345 Oral 920 100 Output: Urine 650 1300 Other: Estimated Void Medium # Voids 1 Left malcom dressing taken down, moderate old bloody drainage on dressings Moderate diffuse edema and ecchymosis lateral thigh calf non tender and soft +DF/PF left ankle Assessment: []s/p cannulated screw fixation left femoral neck fx POD #2 Plan:PT/OT TTWB LLE Lovenox Home on ASA Probable discharge home tomorrow []
[2016-08-06] MEDS: Docusate CAP* 100 MG PO SCH ×2 (09:51→20:41)
[2016-08-06] MEDS: Enoxaparin(*) 40 MG/0.4 ML SYR SUBCUT SCH (09:51)
[2016-08-06] MEDS: Aspirin EC Low Dose* 81 MG TAB.EC PO SCH (09:51)
[2016-08-07] MEDS: oxyCODONE/Acetamin 5/325 MG* TAB PO PRN ×3 (00:25→14:21)
[2016-08-07] MEDS: Aspirin EC Low Dose* 81 MG TAB.EC PO SCH (08:27)
[2016-08-07] MEDS: Docusate CAP* 100 MG PO SCH (08:27)
[2016-08-07] MEDS: Enoxaparin(*) 40 MG/0.4 ML SYR SUBCUT SCH (08:28)
--- NOTE | 2016-08-07 09:53 | PN ---
Progress Note - Progress Note SOAP: Subjective: []Patient seen OOB in chair. Feeling well overall and did better with stairs yesterday. She feels ready for discharge home today and will work with PT this morning. Nursing reports increased bloody drainage on dressing which was reinforced with an ABD this morning. Objective: [] Vital Signs Temp 98.3 F 08/07/16 07:37 Pulse 63 08/07/16 07:55 Resp 16 08/07/16 08:27 BP 146/78 08/07/16 07:55 Pulse Ox 97 08/07/16 07:37 Intake & Output 08/06/16 08/07/16 08/07/16 18:59 06:59 18:59 Intake Total 710 980 120 Output Total 1100 500 400 Balance -390 480 -280 Intake: Oral 710 980 120 Output: Urine 1100 500 400 Other: Estimated Void Medium # Bowel Movements 0 # Voids 1 Left hip dressing taken down. Moderate collection of coagulated hematoma on dressings. The incision itself looks benign. Moderate edema thigh and buttock noted. New 4x4s and ABD applied to incision. calf is non tender and soft + DF/PF left foot sensation and circulation intact distally Assessment: []s/p left hip cannulated screw fixation for femoral neck fracture POD #2 Draining hematoma left hip incision Plan: []PT session this am, TTWB LLE Discontinue Lovenox, convert to ASA 325 mg daily dressing changes daily at home as needed, reviewed with patient Keflex 500 mg po tid for 5 days for infection prophylaxis, reviewed with patient I feel the drainage will slow down after discontinuation of Lovenox Discharge home this afternoon Follow up with Dr. Peterson 10-14 days in office
[2016-08-07 12:06] VITALS: BP 139/74
[2016-08-07] MEDS ORDERED: Cephalexin CAP* 500 MG PO SCH (14:00)
--- NOTE | 2016-08-07 23:01 | DS ---
DISCHARGE SUMMARY: DATE OF ADMISSION: 08/04/16 DATE OF DISCHARGE: 08/07/16 ATTENDING PHYSICIAN: Leonid Peterson MD (DICTATED BY ELIAZAR VAUGHAN) ADMISSION DIAGNOSIS: Left nondisplaced femoral neck fracture. DISCHARGE DIAGNOSIS: Left nondisplaced femoral neck fracture. SURGERY PERFORMED: Cannulated screw fixation, left femoral neck fracture. HOSPITAL COURSE: The patient is a 70-year-old female who had a mechanical fall on the date of 08/03/16. She had uexshxcu-ye-yohbiw pain, but was able to ambulate with the help of her to get to bed. When she awoke the next morning, she continue to have left hip pain and had difficulty ambulating in bearing weight on the left lower extremity. She presented to [facility] walk-in where x-rays revealed the left femoral neck fracture. The patient was then sent over to the ER with a nonweightbearing status via ambulance. Further studies in the emergency department that being a CAT scan revealed that the hip fracture remained in relatively good position and unchanged from the initial x- rays. Options of surgical treatment were discussed with the patient and it was felt she would best benefit from cannulated screw fixation of the left femoral neck understanding that there is a potential for loss of fixation and need for total hip arthroplasty in the future. The patient elected to proceed with cannulated screw fixation and she was taken to the operating room under the care of Dr. Leonid Peterson on the date of 08/04/16. She tolerated the procedure well and left the operating room in stable condition. Postoperatively , she progressed satisfactorily with her physical therapy and occupational therapy goals, remained in hcg-hsznk-ykiavksiaatqa on the left lower extremity. She did have noted a moderate amount of swelling and ecchymosis to the left thigh and buttock with draining hematoma postop day #2. Her Lovenox was discontinued on 08/07/16 and she will be transitioned to an aspirin 325 mg p.o. daily. Compressive dressing was applied today. There was no evidence of infectious process. It was felt that she was stable medically and orthopedically stable for discharge to home on the date of 08/07/16. CONDITION ON DISCHARGE: She is afebrile. Her vital signs are stable. Her left hip incision as above had drained a moderate amount of coagulated hematoma. There is no evidence of infectious process. Her harley are intact. There is noted ecchymosis and swelling to the left thigh and buttock region. Her calf is nontender. Her neurovascular status is grossly intact. PLAN: Discharge to home remaining xro-xrowz-xcpjrctolgzvo on the left lower extremity. Prescriptions of Percocet 5/325 mg 1 to 2 tablets q.4-6 hours p.r.n. pain #90, zero refills, Colace 100 mg p.o. b.i.d. while on narcotic pain medications, and Keflex 500 mg p.o. t.i.d. x5 days were prescribed. The patient will continue to keep the incision covered as long as the remains draining hematoma. If she notices continued drainage of a significant amount after 3 days, notices purulent drainage, increased swelling, any noted calf pain or calf swelling, shortness of breath, chest pain, or dizziness; the office will be contacted. Otherwise, we recommend a followup in 10 to 14 days in the office with Dr. Peterson. ELIAZAR VAUGHAN [id number]/[facility] #: [id number] MTDIsabel
== END 2016-08-07 14:50 | disposition home or self-care (01) | DRG 481 ==
LOC: ED 10:44 → OR 14:34 → SSU 18:59
PROVIDERS: ADMIT Orthopaedic Surgery Hand Surgery; ATTEND Orthopaedic Surgery Hand Surgery
PROC: 0QH734Z Insertion of Internal Fixation Device into Left Upper Femur, Percutaneous Approach (ICD-10-PCS; principal; 2016-08-04 14:30)
DX: S72.012A Unspecified intracapsular fracture of left femur, initial encounter for closed fracture (principal); L76.32 Postprocedural hematoma of skin and subcutaneous tissue following other procedure; I10 Essential (primary) hypertension; R40.2412 Glasgow coma scale score 13-15, at arrival to emergency department; Y83.8 Other surgical procedures as the cause of abnormal reaction of the patient, or of later complication, without mention of misadventure at the time of the procedure; Y92.239 Unspecified place in hospital as the place of occurrence of the external cause; W01.0XXA Fall on same level from slipping, tripping and stumbling without subsequent striking against object, initial encounter; E78.5 Hyperlipidemia, unspecified; M21.052 Valgus deformity, not elsewhere classified, left hip; Z72.89 Other problems related to lifestyle; Z80.6 Family history of leukemia; Z80.0 Family history of malignant neoplasm of digestive organs; Z82.49 Family history of ischemic heart disease and other diseases of the circulatory system; Y92.009 Unspecified place in unspecified non-institutional (private) residence as the place of occurrence of the external cause
CPT/HCPCS: 36415; 71010; 72192; 80048; 80053; 81003; 81015; 83605; 85014; 85018; 85025; 86140; 86850; 86900; 86901; 87077; 87086; 87186; 93005; 94760; 99213; A9270-GY; C1713; C1776; G0463; J0690; J1100; J1170; J1650; J1885; J2250; J2405; J3010

== ENCOUNTER 2016-08-21 10:43 | Inpatient (IN) | payer OTHER ==
--- NOTE | 2016-08-19 14:31 | HP ---
HISTORY AND PHYSICAL: DATE OF SURGERY: 08/21/16 DATE OF OFFICE VISIT: 08/19/16 SURGEON: Armida Hickman MD (DICTATED BY ELIAZAR ABDALLA) PROCEDURE: Left total hip arthroplasty. CHIEF COMPLAINT: Left hip pain. HISTORY OF PRESENT ILLNESS: Ms. Peck is a 70-year-old female who fell on her left hip a few weeks ago and underwent a percutaneous pinning with Dr. Peterson. She has elected to proceed with conversion to a left total hip arthroplasty, which is scheduled for 08/21/[address] Hickman. PAST MEDICAL HISTORY: Denies. PAST SURGICAL HISTORY: Percutaneous pinning, left hip. CURRENT MEDICATIONS: Percocet and aspirin. ALLERGIES: None. FAMILY HISTORY: Denies. SOCIAL HISTORY: She is a 70-year-old female. She lives with her . She does not smoke or use drugs. She uses occasional alcohol. REVIEW OF SYSTEMS: A complete 14-point review of systems is reviewed with the patient and was negative. PHYSICAL EXAMINATION GENERAL: She is well developed, well nourished, in no acute distress. VITAL SIGNS: She stands 5 feet 2 inches tall, weighs 135 pounds. Her blood pressure is 130/82, heart rate is 90. HEENT: Normocephalic, atraumatic. NECK: Supple. No palpable lymph nodes. PULMONARY: Lungs are clear to auscultation bilaterally. CARDIO: Regular rate and rhythm. Strong S1, S2. ABDOMEN: Soft, nontender, nondistended. NEUROLOGICAL: She is alert and oriented x3. Cranial nerves II through XII are intact. MUSCULOSKELETAL: Left lower extremity, the incision over the lateral left thigh is well healed with no signs of infection. Her lower extremity muscle group strength is intact at 5/5. She has 2+ dorsalis pedis pulses and intact sensation. ASSESSMENT AND PLAN: Ms. Peck is a 70-year-old female who underwent pinning of the left hip a few weeks ago. She has elected to proceed with conversion to a left total hip arthroplasty, which is scheduled for 08/21/[address] Hickman discussed the risks and benefits of the surgery at today's visit. All of her questions were answered. She will follow up with Dr. Hickman in 2 weeks after the surgery. ELIAZAR ABDALLA [id number]/[facility] #: [id number] [facility] HOSPITALIsabel
[~2016-08-21 10:43] MED LIST: Buffered Lidocaine 0.9% SYRIN* 5 ML/SYR SYRINGE INTRADERM ONE; Dexamethasone IV* 4 MG/ML 1 ML (4 MG) IV SLOW PU ONE; Famotidine IV* 10 MG/ML 2 ML (20 mg) IV ONE
[2016-08-21] MEDS ORDERED: Famotidine IV* 10 MG/ML 2 ML (20 mg) ONE (11:01)
[2016-08-21] MEDS ORDERED: Dexamethasone IV* 4 MG/ML 1 ML (4 MG) ONE (11:01)
[2016-08-21] MEDS ORDERED: ceFAZolin 2 GM PREMIX(*) 2 GM/50 ML BAG IVPB ONE (11:01)
[2016-08-21] MEDS ORDERED: Buffered Lidocaine 0.9% SYRIN* 5 ML/SYR SYRINGE ONE (11:01)
[2016-08-21] MEDS ORDERED: Lidocaine 1% INJ* 10 MG/ML 30 ML SDV ONE (11:15)
[2016-08-21] MEDS ORDERED: Succinylcholine* 20 MG/ML 10 ML VIAL ONE (11:16)
[2016-08-21] MEDS ORDERED: fentaNYL* 50 MCG/ML 2 ML VIAL (100 MCG VIAL) ONE ×2 (11:18→15:40)
[2016-08-21] MEDS ORDERED: Propofol* 10 MG/ML 20 ML BTL IV PUSH ONE (11:19)
[2016-08-21] MEDS ORDERED: KETAMINE HCL* 50 MG/ML 10 ML VIAL ONE (11:19)
[2016-08-21] MEDS ORDERED: Midazolam* 1 MG/ML 2 ML VIAL (2 MG) ONE (11:19)
[2016-08-21] MEDS ORDERED: Bupivacaine 0.5% W/EPI SDV* 30 ML VIAL ONE (11:55)
[2016-08-21] MEDS ORDERED: Bupivacaine 0.5% SDV PF* 30 ML VIAL ONE (12:35)
[2016-08-21] MEDS ORDERED: fentaNYL* 50 MCG/ML 2 ML VIAL (100 MCG VIAL) IV PRN (13:56)
[2016-08-21] MEDS ORDERED: HYDROmorphone* 1 MG/ML 1 ML SYR IV PRN (13:56)
[2016-08-21] MEDS ORDERED: DiMENhydriNATE IV* 50 MG/ML VIAL IV PUSH PRN (13:56)
[2016-08-21] MEDS ORDERED: Ondansetron INJ* 2 MG/ML VIAL ONE (14:36)
[2016-08-21] MEDS ORDERED: Ketorolac INJ* 30 MG/ML 1 ML VIAL ONE (14:36)
--- NOTE | 2016-08-21 14:54 | RAD ---
INDICATION: Left total hip replacement surgery. COMPARISON: Comparison is made with a prior x-ray study of the left hip from August 16, 2016. TECHNIQUE: 2 portable x-ray films of the pelvis were obtained in the operating room.. FINDINGS: The patient is undergoing a total left hip placement surgery. The acetabular prostheses appears in place. There is a femoral prostheses template in place. IMPRESSION: INTRAOPERATIVE CONTROL FILMS.
[2016-08-21] MEDS ORDERED: Acetaminophen TAB* 325 MG PO PRN (15:30)
[2016-08-21] MEDS ORDERED: Ondansetron INJ* 2 MG/ML VIAL IV PRN (15:35)
[2016-08-21] MEDS ORDERED: diPHENhydraMINE IV* 50 MG/ML 1 ml VIAL (BENADRYL) IV PRN (15:35)
[2016-08-21] MEDS ORDERED: oxyCODONE TAB* 5 MG TAB PO PRN (15:35)
[2016-08-21] MEDS ORDERED: Morphine INJ* 4 MG/ML 1 ML SYRINGE IV PRN (15:35)
[2016-08-21] MEDS ORDERED: Ondansetron TAB* 4 MG PO PRN (15:35)
[2016-08-21] MEDS ORDERED: Bisacodyl SUPP* 10 MG SUPP PR PRN (15:35)
[2016-08-21] MEDS ORDERED: diPHENhydraMINE PO* 25 MG PO PRN (15:35)
[2016-08-21] MEDS ORDERED: Polyethylene Glycol 3350* 17 GM PACKET PO PRN (15:35)
[2016-08-21] MEDS ORDERED: HYDROmorphone* 1 MG/ML 1 ML SYR ONE (15:40)
--- NOTE | 2016-08-21 16:16 | RAD ---
INDICATION: Status post total left hip arthroplasty. COMPARISON: Comparison is made with a prior x-ray study of the left hip from August 16, 2016. TECHNIQUE: AP and lateral films of the left hip were obtained. FINDINGS: The patient is status post total left hip replacement surgery. The bones and prostheses are in normal alignment. There is a small amount of air within the adjacent soft tissues consistent with the patient's recent surgery. IMPRESSION: STATUS POST TOTAL LEFT HIP REPLACEMENT SURGERY.
--- NOTE | 2016-08-21 16:17 | RAD ---
INDICATION: Status post total left hip replacement surgery. TECHNIQUE: An AP view of the pelvis was obtained. FINDINGS: The patient is status post total left hip replacement surgery. The bones and prostheses are in normal alignment. There is a small amount of air in the adjacent soft tissues consistent with the patient's recent surgery. IMPRESSION: STATUS POST TOTAL LEFT HIP REPLACEMENT SURGERY.
[2016-08-21] MEDS ORDERED: Warfarin TAB(*) 6 MG PO ONE (17:00)
[2016-08-21] MEDS: oxyCODONE/Acetamin 5/325 MG* TAB PO PRN ×2 (17:49→21:27)
[2016-08-21] MEDS: Docusate CAP* 100 MG PO SCH (20:16)
[2016-08-21] MEDS: Magnesium Hydroxide LIQ* 30 ML UDC PO SCH (20:16)
[2016-08-21] MEDS: ceFAZolin VIAL(*) 1 GM in NS 0.9% 50 ML* 50 ML IVPB SCH (20:16)
[2016-08-22] MEDS: ceFAZolin VIAL(*) 1 GM in NS 0.9% 50 ML* 50 ML IVPB SCH ×2 (04:07→12:03)
[2016-08-22] MEDS: oxyCODONE/Acetamin 5/325 MG* TAB PO PRN ×5 (06:00→23:41)
[2016-08-22 06:11] LABS: Hematocrit 31 % (35-47); Hemoglobin 10.2 g/dl (12.0-16.0)
[2016-08-22 06:23] LABS: BUN/Creatinine Ratio 18.3 (8-20); Calcium 8.8 mg/dL (8.6-10.3); EGFR African American 127.9 (>60); EGFR Non-African American 99.4 (>60)
--- NOTE | 2016-08-22 07:09 | OP ---
DATE OF OPERATION: 08/21/16 - ROOM #347 DATE OF : 49 SURGEON: Armida Hickman MD AGRICULTURE EXTENSION SPECIALIST: ELIAZAR Arshad. Ms. Hinds did help throughout the procedure with preparation of the leg, wound retraction, manipulation of the hip, and wound closure. ANESTHESIOLOGIST: Dr. Ricky Canales. ANESTHESIA: General. PRE-OP DIAGNOSIS: Left hip pain with failed cannulated screw fixation of a valgus impacted femoral neck fracture. POST-OP DIAGNOSIS: Left hip pain with failed cannulated screw fixation of a valgus impacted femoral neck fracture. OPERATIVE PROCEDURE: Conversion to left total hip arthroplasty with removal of hardware. COMPLICATIONS: None. SPECIMEN: Femoral head and acetabular remains sent to Pathology, three cannulated screws with one washer sent to Pathology. ESTIMATED BLOOD LOSS: 200 cc. HARDWARE USED: This is uncemented [place] total hip hardware. For the cup, a Trident 48 mm hemispherical acetabular shell 48B, one 20 mm cancellous bone screw. For the insert, a Trident X3 0-degree polyethylene insert, 36D. For the femoral stem, an Accolate TMZF size 3, 132-degree neck with a bilateral delta ceramic V40 femoral head 36 -2.5. INDICATIONS: Ms. Charles Peck is a 70-year-old female who fell in her home approximately 2 weeks ago. She had on 08/04/[address] cann[address] fixation [address] Dr[address] Peterson at [facility]. First followup exam radiograph showed cut- out of one of the screws with protrusion in to the hip joint. I was consulted for my recommendations on revision surgery. I presented the patient with the option of revision of the cannulated screws with different position and placement of cannulated screws versus conversion to a left total hip arthroplasty. I did recommend the conversion to the left total hip arthroplasty and the patient accepted it. Informed consent was obtained from the patient. She understood the risks of surgery included but were not limited to bleeding, infection, damage to nearby structures, continued pain, need for further surgery, intraoperative fracture, nerve palsy, hardware failure or loosening, leg length discrepancy, dislocation, stroke, heart attack, blood clot , and . She wished to proceed. FINDINGS: Intraoperatively, the patient was noted to have displaced femoral neck fracture. She was noted to have osteopenia throughout the procedure. There was no obvious external wounds or infection. The cannulated screws were removed without difficulty. There was no noted intraoperative fracture or stress risers seen at the lateral screw holes. There was significant acetabular degenerative changes noted. DESCRIPTION OF PROCEDURE: Ms. Charles Peck was identified in the preanesthesia unit. Her left lower extremity was marked as the correct operative site. Informed consent was signed and placed in the chart. The patient was taken to the operating room and placed under general anesthesia without difficulty. A Daley catheter was placed. She was placed in the right lateral decubitus position on the pegboard and all bony prominences were well padded. The left lower extremity was prepped and draped in the usual sterile fashion. Preop time-out was made to correctly identify the patient's side and site. Appropriate perioperative antibiotics were given within 1 hour of incision. The patient's cannulated screw incision was healing well, but was not appropriate for posterior approach to the hip. A 12-cm posterior hip incision was made using a 10-blade and carried down to the lateral fascial layer. The lateral fascial layer was incised in line with the skin incision. Charnley retractor was placed and the posterior aspect of the hip joint was well visualized. Piriformis and conjoint tendons were identified and these were elevated off the posterolateral femur using electrocautery. These were tagged with two #5 Ethibonds. Electrocautery was then used to make a posterolateral capsular flap and this was also tagged with two #5 Ethibonds. The femoral neck fracture was visualized as well as one of the cannulated screws. The hip was carefully dislocated. The hip was then reduced again. Using the appropriate screw-carry all driver, the three cannulated screws with one washer was carefully removed. There was no obvious purulence or signs of infection. Attention was turned back to the femur. The lesser troch to the femoral head measured 52 mm. Oscillating saw was used to make the appropriate femoral neck cut. This was just distal to the femoral neck fracture. Femoral head was removed and sent to Pathology. The femur was carefully retracted anteriorly. The acetabulum had obvious cartilage wear and a large cartilage flap along the anterior half of the acetabulum. Long- handle knife was used to remove any remaining labrum from the acetabular rim. The acetabulum was sequentially reamed to a size 47. 47 trial had good fit with bleeding bone bed. A 48V Trident hemispheric acetabular shell was chosen as the final implant. This was impacted into the acetabulum without difficulty. Appropriate abduction angle and anteversion were chosen. One 20-mm screw was placed in the superior posterior quadrant for extra stability. A Trident X3 0- degree polyethylene insert 36D was chosen as the correct liner. Stability of the liner was checked and rechecked and noted to be stable. Attention was next turned to preparation of the femur. A canal finder was used to enter the femur. The femur was sequentially broached up to a size 3. Size 3 broach had good stability and fit the canal well. A 132-degree neck trial and a 36 -2.5 head trial were chosen. Lesser troch side of the femoral head measured 54 mm. The hip was reduced and taken through a range of motion. The hip was stable in all positions with good soft tissue tension. Intraoperative plain films AP pelvis was obtained. There was no obvious fracture around the femoral implants. Leg lengths were deemed to be appropriate. The hip was carefully dislocated. All trials were carefully removed. Final implant chosen was an Accolade TMZF size 3 with a 132-degree neck angle. This was impacted into the femoral canal without difficulty. The stem was noted to be stable with appropriate anteversion. A 36 -2.5 Biolox delta 36 head was chosen. This was impacted onto the femoral neck without difficulty. The hip was reduced and taken through a range of motion. The hip was stable in all positions with good soft tissue tension. The hip was copiously irrigated with sterile saline. Previously tagged capsule and tendons were reapproximated to the posterolateral femur through 2 trochanteric drill holes. The lateral fascial layer was closed using interrupted #1 Vicryl. The rest of the incision was closed in a layered fashion using 0 and 2-0 Vicryls. Skin was closed using running 3-0 Monocryl and Dermabond. Sterile Adaptic, 4x4s, and paper tape were used to cover the incision. The patient's anesthesia was reversed without difficulty. She was taken to the PACU in stable condition. Intended weight bearing will be weightbearing as tolerated with posterior hip precautions. Intended DVT prophylaxis will be Coumadin with a Lovenox bridge. [id number]/[facility] #: [id number] [facility]ATR[facility] CENTERIsabel
--- NOTE | 2016-08-22 07:37 | PN ---
Progress Note - Progress Note SOAP: Subjective: Pt. is alert, pain controlled. Objective: LLE - dressing c/d/i. thigh soft, distally nvi. Vital Signs: Temp Pulse Resp BP Pulse Ox 98.5 F 84 16 114/63 98 08/22/16 07:23 08/22/16 07:23 08/22/16 07:23 08/22/16 07:23 08/22/16 07:23 Laboratory Results - last 24 hr 08/22/16 08/22/16 08/22/16 05:51 05:51 05:51 Hgb 10.2 L Hct 31 L INR (Anticoag Therapy) 1.04 Sodium 135 Potassium 4.0 Chloride 105 Carbon Dioxide 24 Anion Gap 6 BUN 11 Creatinine 0.60 Est GFR ( Amer) 127.9 Est GFR (Non-Af Amer) 99.4 BUN/Creatinine Ratio 18.3 Glucose 104 H Calcium 8.8 Assessment: 70 yo F pod 1 s/p conversion arik'ed screw failure to LTHA Plan: wbat lle with post hip precautions pt/ot 8 mg coumadin tonjudd lovenox today plan d/c to home 08/23
[2016-08-22] MEDS: Docusate CAP* 100 MG PO SCH ×2 (09:31→21:26)
[2016-08-22] MEDS: Magnesium Hydroxide LIQ* 30 ML UDC PO SCH ×2 (09:31→21:26)
[2016-08-22] MEDS ORDERED: Lactated Ringers 500 ml BAG* 500 ML IV ONE (11:00)
[2016-08-22] MEDS ORDERED: Enoxaparin(*) 30 MG/0.3 ML SYR SUBCUT SCH (16:00)
[2016-08-22] MEDS ORDERED: Warfarin TAB(*) 4 MG PO ONE (17:00)
[2016-08-23 06:18] LABS: Hematocrit 28 % (35-47); Hemoglobin 9.4 g/dl (12.0-16.0)
[2016-08-23] MEDS: oxyCODONE/Acetamin 5/325 MG* TAB PO PRN ×2 (06:54→11:22)
[2016-08-23] MEDS: Magnesium Hydroxide LIQ* 30 ML UDC PO SCH (08:02)
[2016-08-23 08:03] VITALS: BP 105/58
[2016-08-23] MEDS: Docusate CAP* 100 MG PO SCH (08:12)
--- NOTE | 2016-08-23 11:16 | PN ---
Progress Note - Progress Note SOAP: Subjective: 70 y/o female s/p L hip conversion to NELLY by Dr. Hickman 08/21/2016. VSS, mild tachy, afebrile overnight. OVerall feeling well, pain well controlled with pain meds. Eager for DC. Objective: General- Well appearing, NAD sitting in chair comfortably. MSK- + DF/PF, PT 2+ b/l, no edema b/l LE's, neg homans sign. Incision c/d/i, dressing intact. Vital Signs Temp 98.5 F 08/23/16 07:49 Pulse 90 08/23/16 07:49 Resp 16 08/23/16 08:54 BP 105/58 08/23/16 07:49 Pulse Ox 97 08/23/16 08:03 Intake & Output 08/22/16 08/23/16 08/23/16 18:59 06:59 18:59 Intake Total 1666 1310 Output Total 900 650 0 Balance 766 660 0 Intake: IV Fluids 1346 LR 1346 Oral 320 1310 Output: Urine 500 650 0 Daley 400 Other: Estimated Void Medium # Bowel Movements 0 # Voids 1 Laboratory Results - last 24 hr 08/23/16 08/23/16 05:56 05:56 Hgb 9.4 L Hct 28 L INR (Anticoag Therapy) 2.07 H Assessment: 70 y/o female s/p L hip conversion to NELLY by Dr. Hickman 08/21/2016. Plan: - D/C today home - Coumadin for DVT prophylaxis- theraputic today, d/c lovenox, 2-4-2mg over weekend - F/U with dr. Hickman within 10- days - Continue pain regimen - Continue PT/OT Active Medications Generic Name Dose Route Start Last Admin Trade Name Freq PRN Reason Stop Dose Admin Acetaminophen 650 mg 08/21/16 15:30 Tylenol Tab* PO Q4H PRN mild pain or fever Bisacodyl 10 mg 08/21/16 15:35 Dulcolax Supp* OH DAILY PRN constipation Diphenhydramine HCl 12.5 mg 08/21/16 15:35 Benadryl Iv* IV Q6H PRN PRURITIS Diphenhydramine HCl 25 mg 08/21/16 15:35 Benadryl Po* PO Q6H PRN INSOMNIA Docusate Sodium 100 mg 08/21/16 21:00 08/23/16 08:12 Colace Cap* PO 100 mg BID YESI Administration Lactated Ringer's 1,000 mls @ 100 mls/hr 08/21/16 16:00 08/22/16 02:45 Lactated Ringers 1000 Ml Bag* IV 100 mls/hr PER RATE YESI Administration Lactulose 30 ml 08/21/16 21:00 08/23/16 08:01 Lactulose* PO Not Given BID YESI Magnesium Hydroxide 30 ml 08/21/16 21:00 08/23/16 08:02 Milk Of Magngenoveva Liq* PO Not Given BID YESI Morphine Sulfate 4 mg 08/21/16 15:35 Morphine Inj (Syringe)* IV Q2H PRN PAIN Ondansetron HCl 4 mg 08/21/16 15:35 Zofran Inj* IV Q6H PRN nausea Ondansetron HCl 4 mg 08/21/16 15:35 Zofran Tab* PO Q6H PRN NAUSEA Oxycodone HCl 10 mg 08/21/16 15:35 Roxycodone Tab* PO Q4H PRN breakthru pain Oxycodone/Acetaminophen 1 tab 08/21/16 15:35 08/22/16 09:31 Percocet 5/325 Tab* PO 1 tab Q3H PRN Administration PAIN - MODERATE Oxycodone/Acetaminophen 2 tab 08/21/16 15:40 08/23/16 06:54 Percocet 5/325 Tab* PO 2 tab Q3H PRN Administration PAIN - MODERATE Pharmacy Profile Note 1 note 08/22/16 17:00 08/22/16 16:53 Coumadin Daily Reminder* FOLLOW UP 1 note 1700 YESI Administration Polyethylene Glycol/Electrolytes 17 gm 08/21/16 15:35 Miralax* PO DAILY PRN Constipation 08/23/2016 11:22AM
== END 2016-08-23 11:55 | disposition home or self-care (01) | DRG 468 ==
LOC: AA 10:43 → SSU 16:51
PROVIDERS: ADMIT Orthopaedic Surgery Adult Reconstructive Orthopaedic Surgery; ATTEND Orthopaedic Surgery Adult Reconstructive Orthopaedic Surgery
PROC: 0SPB0JZ Removal of Synthetic Substitute from Left Hip Joint, Open Approach (ICD-10-PCS; 2016-08-21)
PROC: 0SRB02A Replacement of Left Hip Joint with Metal on Polyethylene Synthetic Substitute, Uncemented, Open Approach (ICD-10-PCS; principal; 2016-08-21 12:00)
DX: T84.195A Other mechanical complication of internal fixation device of left femur, initial encounter (principal); M85.862 Other specified disorders of bone density and structure, left lower leg
CPT/HCPCS: 36415; 72170; 80048; 85014; 85018; 85610; 88300; 88305; 88311; A9270-GY; C1713; C1776; J0330; J0690; J1100; J1170; J1650; J1885; J2001; J2250; J2405; J2704; J3010